=== PATIENT | female | born 1995 | race Caucasian/White ===

== ENCOUNTER 2025-06-21 08:22 | Day surgery (SDC) | payer BC ==
[2025-06-19 13:57] VITALS: BMI 32.4
[2025-06-21 10:11] LABS: Hematocrit 43.7 % (34.9-44.5); Hemoglobin 14.0 g/dL (12.0-15.5)
[2025-06-21 10:29] LABS: BHCG - Serum Negative (NEGATIVE); Pregs Control Background? CLEAR/WHITE (CLR/WHITE); Pregs Control Bar Appear? YES (CONTROL BAR)
[2025-06-21] MEDS ORDERED: Lidocaine 1% w/Epinephrine 1:200K 30 ML VIAL ONE (10:52)
[2025-06-21] MEDS ORDERED: Sevoflurane 250 ML INH ANEST BOTTLE ONE (10:52)
[2025-06-21] MEDS ORDERED: Bacitracin 1 PK ONE (10:52)
[2025-06-21] MEDS ORDERED: PROPOFOL 20 ML ONE (10:53)
[2025-06-21] MEDS ORDERED: Lidocaine 1% PF 5 ML VIAL ONE (10:55)
[2025-06-21] MEDS ORDERED: Ondansetron PF 4 MG/2 ML Vial ONE (10:55)
== END 2025-06-21 13:40 | disposition home or self-care (01) ==
LOC: CSHSDC 08:22
PROVIDERS: ATTEND Otolaryngology Plastic Surgery within the Head & Neck
PROC: 09T Ear, Nose, Sinus, Resection (ICD-10-PCS; principal; 2025-06-21)
DX: Q18.0 Sinus, fistula and cyst of branchial cleft (principal); Q18.1 Preauricular sinus and cyst; I10 Essential (primary) hypertension; I95.1 Orthostatic hypotension; Z79.899 Other long term (current) drug therapy; Z88.1 Allergy status to other antibiotic agents
CPT/HCPCS: 36415; 84703; 85014; 85018; 88304; J1100; J2405; J2704